=== PATIENT | female | born 1990 | race Caucasian/White ===

== ENCOUNTER 2016-12-27 06:03 | Emergency (ER) | payer MEDICAID, OTHER ==
[~2016-12-27] VITALS: Ht 160 cm; Wt 56.5 kg
[2016-12-27 06:10] VITALS: Ht 160 cm; Wt 56.5 kg
[2016-12-27] MEDS ORDERED: CLOT45CR19 VAG (07:24)
[2016-12-27] MEDS ORDERED: MCN2C15 TOP (07:25)
--- NOTE | 2016-12-27 07:31 | ERD ---
ER Documentation Chief Complaint Date/Time DATE: 12/27/16 TIME: 07:29 Chief Complaint vaginal pain/itching/whitish discharge x 10 days HPI 26-year-old female presents with vaginal itching and white discharge for the past 10 days. She states that she is trying to get at this time, and would prefer to treat conservatively. She denies any fevers, chills. About 2 weeks ago, she met with her ACCOUNTING MACHINE SERVICER who did a full panel of STDs, including blood work. She is currently taking vitamins. Patient reports that her workup was all negative. ROS All systems reviewed and are negative except as per history of present illness. Medications Home Meds Active Scripts Miconazole Nitrate* (Miconazole Nitrate*) 2% - 15 Gm Cr, 1 APPLIC TOP BID, #15 TUB Prov:JAZMIN BRIONES PA-C 12/27/16 Clotrimazole* (Clotrimazole-7*) Vaginal Cream..g., 1 APPLIC VAG HS for 7 Days, EA Prov:JAZMIN BRIONES PA-C 12/27/16 Allergies Allergies: Coded Allergies: tramadol (Verified Allergy, Unknown, sob, 12/27/16) PMhx/Soc History of Surgery: Yes (Bilateral Breast Augmentation) Anesthesia Reaction: No Hx Neurological Disorder: No Hx Respiratory Disorders: No Hx Cardiac Disorders: No Hx Psychiatric Problems: No Hx Miscellaneous Medical Probl: Yes (Miscarriage) Hx Alcohol Use: No Hx Substance Use: No Hx Tobacco Use: No Physical Exam Vitals Vital Signs Date Time Temp Pulse Resp B/P Pulse Ox O2 Delivery O2 Flow Rate FiO2 12/27/16 06:10 97.6 63 20 98/61 100 Physical Exam General: Well-developed, well-nourished. The patient appears in no acute distress. HEENT: Head is normocephalic, atraumatic. No scleral icterus. Neck: Supple. Nontender. Lungs: Clear to auscultation. Normal air movement. Heart: Regular rate and rhythm. S1 and S2 are normal. No murmurs, gallops, or rubs. Abdomen: Nondistended. : There is White yeastlike discharge, no CMT tenderness, no masses. No bleeding. Extremities: No clubbing or cyanosis. Moving extremities x 4. No weakness. Neurologic: Alert and oriented 3. No focal deficits. Normal speech and gait. Skin: Normal turgor. No rash or lesions. Procedures/MDM ER course: Urine was negative. MDM: 18-year-old female presents with yeast vaginitis 2 days. Differentials include UTI, PID, cervicitis, HSV, syphilis, and among others. Departure Diagnosis: Primary Impression: Vaginitis Condition: Good Patient Instructions: Vaginal Infection: Yeast (Candidiasis) Additional Instructions: Call your primary care doctor TOMORROW for an appointment during the next 1-2 days.See the doctor sooner or return here if your condition worsens before your appointment time. JAZMIN BRIONES PA-C Dec 27, 2016 07:31
== END 2016-12-27 07:57 | disposition home or self-care (01) ==
LOC: FTE 06:03
DX: N76.0 Acute vaginitis (principal)
CPT/HCPCS: 87591; Z7502; 99284

== ENCOUNTER 2017-01-07 11:22 | Emergency (ER) | payer OTHER ==
[~2017-01-07] VITALS: Wt 61.0 kg
[~2017-01-07 11:22] MED LIST: CLOT45CR19 VAG; MCN2C15 TOP
[2017-01-07] MEDS ORDERED: IBUP-1542 PO (11:49)
[2017-01-07] MEDS ORDERED: D-ME473S18 PO (11:49)
[2017-01-07] MEDS ORDERED: AZIT250T94 PO (11:49)
--- NOTE | 2017-01-07 11:56 | ERD ---
ER Documentation Chief Complaint Date/Time DATE: 01/07/17 TIME: 11:54 Chief Complaint FEVER/COUGH/SORE THROAT X 1 WEEK HPI This 18-year-old female presents with fever and cough and sore throat for last week. She has productive mucus. She denies wheezing, vomiting, abdominal pain , chest pain, neck stiffness, rashes. ROS All systems reviewed and are negative except as per history of present illness. Medications Home Meds Active Scripts Azithromycin* (Zithromax*) 250 Mg Tablet, 250 MG PO .ZPACK DIRECTED, #6 TAB TAKE 500 MG (2 TABS) THE FIRST DAY THEN 250 MG (1 TAB) DAYS 2-5 Prov:IVAN LOPEZ MD 01/07/17 Dextromethorphan Hb-Promethazine Hcl (Promethazine DM Syrup) 473 Ml Syrup, 5 ML PO Q6H Y for COUGH, #4 OZ Prov:IVAN LOPEZ MD 01/07/17 Ibuprofen* (Motrin*) 600 Mg Tab, 600 MG PO Q6, #15 TAB Prov:IVAN LOPEZ MD 01/07/17 Miconazole Nitrate* (Miconazole Nitrate*) 2% - 15 Gm Cr, 1 APPLIC TOP BID, #15 TUB Prov:JAZMIN BRIONES PA-C 12/27/16 Clotrimazole* (Clotrimazole-7*) Vaginal Cream..g., 1 APPLIC VAG HS for 7 Days, EA Prov:JAZMIN BRIONES PA-C 12/27/16 Allergies Allergies: Coded Allergies: tramadol (Verified Allergy, Unknown, sob, 12/27/16) PMhx/Soc History of Surgery: Yes (Bilateral Breast Augmentation) Anesthesia Reaction: No Hx Neurological Disorder: No Hx Respiratory Disorders: No Hx Cardiac Disorders: No Hx Psychiatric Problems: No Hx Miscellaneous Medical Probl: Yes (Miscarriage) Hx Alcohol Use: No Hx Substance Use: No Hx Tobacco Use: No Physical Exam Vitals Vital Signs Date Time Temp Pulse Resp B/P Pulse Ox O2 Delivery O2 Flow Rate FiO2 01/07/17 11:24 98.1 75 18 115/65 99 Physical Exam Const: [] Alert, [id number]. Head: Atraumatic Eyes: Normal Conjunctiva ENT: Normal External Ears, Nose and Mouth. TMs normal. Pupils nasal congestion with postnasal drip. Neck: Full range of motion..~ No meningismus. Resp: Clear to auscultation bilaterally. Coarse cough without rales, wheezing or retractions. Cardio: Regular rate and rhythm, no murmurs Abd: Soft, non tender, non distended. Normal bowel sounds Skin: No petechiae or rashes Back: No midline or flank tenderness Ext: No cyanosis, or edema Neur: Awake and alert Psych: Normal Mood and Affect Procedures/MDM Patient presents with URI symptoms for last week without evidence of respiratory distress or hypoxemia. Given the duration patient request she will be treated with Zithromax, promethazine and ibuprofen although this may be a viral illness. The patient was stable with no new complaints during the ER course. Clinically, there is no current evidence to suggest meningitis, sepsis, acute abdomen, pneumonia, acute coronary syndrome, pulmonary embolism, or any other emergent condition appearing to require further evaluation or hospitalization. The patient should certainly return for any new or worsening symptoms per the aftercare instructions. They should otherwise follow-up with her primary care doctor for reevaluation this week. Departure Diagnosis: Primary Impression: URI, acute Additional Impression: Fever Fever type: unspecified Qualified Code: R50.9 - Fever, unspecified fever cause Condition: Stable Patient Instructions: Acute Bronchitis, Fever Control (Adult) Additional Instructions: Recheck for new or worsening symptoms or primary care doctor. IVAN LOPEZ MD Jan 07, 2017 11:56
== END 2017-01-07 12:16 | disposition home or self-care (01) ==
LOC: FTE 11:22
DX: J06.9 Acute upper respiratory infection, unspecified (principal)
CPT/HCPCS: 99284

== ENCOUNTER 2017-03-22 20:26 | Emergency (ER) | payer OTHER ==
[~2017-03-22] VITALS: Ht 160 cm; Wt 59.0 kg
[~2017-03-22 20:26] MED LIST changes: +AZIT250T94 PO; +D-ME473S18 PO; +IBUP-1542 PO
[2017-03-22 20:46] VITALS: Ht 160 cm; Wt 59.0 kg
[2017-03-22] MEDS ORDERED: KETOROLAC 30 MG INJ IM STA (21:29)
[2017-03-22] MEDS ORDERED: DIAZEPAM 5 MG TAB PO STA (21:29)
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
[2017-03-22] MEDS ORDERED: CYCL-319 PO (21:52)
[2017-03-22] MEDS ORDERED: NAPR-260 PO (21:52)
[2017-03-22] MEDS ORDERED: IBUPROFEN 600 MG TAB PO STA (22:13)
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
== END 2017-03-22 23:24 | disposition home or self-care (01) ==
LOC: FTE 20:26
DX: S29.9XXA Unspecified injury of thorax, initial encounter (principal); V49.49XA Driver injured in collision with other motor vehicles in traffic accident, initial encounter
CPT/HCPCS: 72020; 96372; J1885; Z7502; Z7610

== ENCOUNTER 2018-02-16 13:38 | Emergency (ER) | END 2018-02-16 16:40 | disposition home or self-care (01) ==

== ENCOUNTER 2018-04-17 03:03 | Emergency (ER) | END 2018-04-17 04:38 | disposition home or self-care (01) ==

== ENCOUNTER 2018-05-08 07:16 | Emergency (ER) | END 2018-05-08 09:03 | disposition home or self-care (01) ==

== ENCOUNTER 2018-10-05 19:49 | Emergency (ER) | payer SELFPAY ==
[~2018-10-05] VITALS: Ht 162.6 cm; Wt 58.7 kg
[~2018-10-05 19:49] MED LIST changes: +ACET500C5 PO; +AZIT250T PO; -AZIT250T94 PO; +BACL10TA PO; +BENZ-6 PO; +CETI10CA PO; +CYCL10TA7 PO; +FLUT9.9S NASAL; +IBUP-1561 PO; +LORA-441 PO; +NAPR-985 PO
[2018-10-05 19:51] VITALS: BP 119/61; PULSE 69; RESP 20; Ht 162.6 cm; Wt 58.7 kg
[2018-10-06] MEDS ORDERED: PRED20TA PO (14:24)
[2018-10-06] MEDS ORDERED: LORA-186 PO (14:24)
== END 2018-10-05 20:50 | disposition left against medical advice (07) ==
LOC: FTE 19:49
DX: Z53.21 Procedure and treatment not carried out due to patient leaving prior to being seen by health care provider (principal)

== ENCOUNTER 2018-10-06 12:32 | Emergency (ER) | payer OTHER ==
[~2018-10-06] VITALS: Wt 52.0 kg
[2018-10-06 12:35] VITALS: BP 113/53; PULSE 68; RESP 18
[2018-10-06] MEDS ORDERED: LORA-186 PO (14:24)
[2018-10-06] MEDS ORDERED: PRED20TA PO (14:24)
--- NOTE | 2018-10-06 21:52 | ERD ---
ER Documentation Chief Complaint Chief Complaint LEFT EAR PAIN HPI 28-year-old female presents for left ear pain times 4 days. Patient states it's a buzzing sensation. She denies any recent sickness. She states that she has similar symptoms while she is on a flight. Denies any fevers or chills. ROS All systems reviewed and are negative except as per history of present illness. Medications Home Meds Active Scripts Prednisone (Prednisone) 20 Mg Tab, 20 MG PO DAILY for eustacian tube dysfunction for 3 Days, #2 TAB Prov:QUENTIN RUIZ 10/06/18 Loratadine* (Claritin*) 10 Mg Tablet, 10 MG PO DAILY for serous otitis for 30 Days, TAB Prov:QUENTIN RUIZ 10/06/18 Acetaminophen* (Tylophen*) 500 Mg Capsule, 1 CAP PO Q6H PRN for PAIN AND OR ELEVATED TEMP, #30 CAP Prov:MATT BROCKC 05/08/18 Ibuprofen* (Motrin*) 600 Mg Tab, 600 MG PO Q6, #30 TAB Prov:MATT BROCKC 05/08/18 Fluticasone Propionate (Flonase Allergy Relief) 9.9 Ml Roxie.susp, 2 SPRAY NASAL DAILY, #1 BOTTLE TO EACH NOSTRIL Prov:MATT BROCKC 05/08/18 Cetirizine Hcl* (Zyrtec*) 10 Mg Capsule, 10 MG PO DAILY, #14 TAB.CHEW Prov:MATT BROCKC 05/08/18 Cetirizine Hcl* (Zyrtec*) 10 Mg Capsule, 10 MG PO DAILY, #30 TAB.CHEW Prov:NOE JORDAN NP 04/17/18 Benzonatate* (Tessalon Perle*) 100 Mg Capsule, 100 MG PO Q8H PRN for COUGH, #20 CAP Prov:NOE JORDAN NP 04/17/18 Azithromycin* (Zithromax*) 250 Mg Tablet, 250 MG PO .ZPACK DIRECTED, #6 TAB TAKE 500 MG (2 TABS) THE FIRST DAY THEN 250 MG (1 TAB) DAYS 2-5 Prov:NOE JORDAN NP 04/17/18 Ibuprofen* (Motrin*) 400 Mg Tab, 400 MG PO Q8, #15 TAB Prov:JYOTHI KEARNS MD 02/16/18 Baclofen* (Baclofen*) 10 Mg Tablet, 10 MG PO TID for 5 Days, #15 TAB Prov:JYOTHI KEARNS MD 02/16/18 Lorazepam* (Ativan*) 0.5 Mg Tablet, 0.5 MG PO Q8H PRN for ANXIETY, #10 TAB Prov:JYOTHI KEARNS MD 02/16/18 Naproxen* (Naprosyn*) 500 Mg Tablet, 500 MG PO BID PRN for PAIN AND/OR INFLAMMATION, #30 TAB Prov:ODILON SHARMA PA-C 03/22/17 Cyclobenzaprine Hcl* (Cyclobenzaprine Hcl*) 10 Mg Tablet, 10 MG PO TID, #15 TAB Prov:ODILON SHARMA PA-C 03/22/17 Azithromycin* (Zithromax*) 250 Mg Tablet, 250 MG PO .ROSS DIRECTED, #6 TAB TAKE 500 MG (2 TABS) THE FIRST DAY THEN 250 MG (1 TAB) DAYS 2-5 Prov:IVAN LOPEZ MD 01/07/17 Dextromethorphan Hb-Promethazine Hcl (Promethazine DM Syrup) 473 Ml Syrup, 5 ML PO Q6H PRN for COUGH, #4 OZ Prov:IVAN LOPEZ MD 01/07/17 Ibuprofen* (Motrin*) 600 Mg Tab, 600 MG PO Q6, #15 TAB Prov:IVAN LOPEZ MD 01/07/17 Miconazole Nitrate* (Miconazole Nitrate*) 2% - 15 Gm Cr, 1 APPLIC TOP BID, #15 TUB Prov:JAZMIN BRIONES PA-C 12/27/16 Clotrimazole* (Clotrimazole-7*) Vaginal Cream..g., 1 APPLIC VAG HS for 7 Days, EA Prov:JAZMIN BRIONES PA-C 12/27/16 Allergies Allergies: Coded Allergies: tramadol (Verified Allergy, Unknown, sob, 04/17/18) PMhx/Soc History of Surgery: Yes (Bilateral Breast Augmentation 2009) Anesthesia Reaction: No Hx Neurological Disorder: No Hx Respiratory Disorders: No Hx Cardiac Disorders: No Hx Psychiatric Problems: No Hx Miscellaneous Medical Probl: Yes (Miscarriage) Hx Alcohol Use: No Hx Substance Use: No Hx Tobacco Use: No Smoking Status: Never smoker Physical Exam Vitals Vital Signs Date Temp Pulse Resp B/P (MAP) Pulse Ox O2 O2 Flow FiO2 Time Delivery Rate 10/06/18 98.1 68 18 113/53 99 12:35 (73) Physical Exam Const: No acute distress Head: Atraumatic Eyes: Normal Conjunctiva ENT: Normal External Ears, bilateral tympanic membrane intact without erythema or bulging noted, nose and Mouth examination normal, no tonsillar swelling or exudate noted Neck: Full range of motion. No meningismus. Resp: Clear to auscultation bilaterally, no wheezing, rales, rhonchi Cardio: Regular rate and rhythm, no murmurs Skin: No petechiae or rashes Ext: No cyanosis, or edema Neur: Awake and alert Psych: Normal Mood and Affect Procedures/MDM Medical Decision Making: Differential diagnosis includes but not limited to eustachian tube dysfunction, otitis media, otitis externa Patient appeared well on physical exam. Tympanic membranes intact bilaterally without erythema or bulging noted, there is low suspicion for otitis media or otitis externa Patient may have eustachian tube dysfunction. Patient given prescription for steroid and Claritin Advised that she may need to follow with a ENT specialist if symptoms do not improve. Patient advised to follow up with PCP in 1-2 days. Patient advised to return to ED for new or worsening symptoms. Patient stable on discharge from the ED. Disclaimer: Inadvertent spelling and grammatical errors are likely due to EHR/dictation software use and do not reflect on the overall quality of patient care. Also, please note that the electronic time recorded on this note does not necessarily reflect the actual time of the patient encounter. Departure Diagnosis: Primary Impression: Left ear pain Condition: Fair Patient Instructions: Common Middle Ear Problems Referrals: COMMUNITY CLINICS YOU HAVE RECEIVED A MEDICAL SCREENING EXAM AND THE RESULTS INDICATE THAT YOU DO NOT HAVE A CONDITION THAT REQUIRES URGENT TREATMENT IN THE EMERGENCY DEPARTMENT. FURTHER EVALUATION AND TREATMENT OF YOUR CONDITION CAN WAIT UNTIL YOU ARE SEEN IN YOUR DOCTORS OFFICE WITHIN THE NEXT 1-2 DAYS. IT IS YOUR RESPONSIBILITY TO MAKE AN APPOINTMENT FOR FOLOW-UP CARE. IF YOU HAVE A PRIMARY DOCTOR --you should call your primary doctor and schedule an appointment IF YOU DO NOT HAVE A PRIMARY DOCTOR YOU CAN CALL OUR PHYSICIAN REFERRAL HOTLINE AT IF YOU CAN NOT AFFORD TO SEE A PHYSICIAN YOU CAN CHOSE FROM THE FOLLOWING [facility] [address] [facility] [address] [employer] [facility] [address] [facility] [address] [facility] [address] [facility] [facility] [address] Additional Instructions: Call your primary care doctor TOMORROW for an appointment during the next 1-2 days.See the doctor sooner or return here if your condition worsens before your appointment time. QUENTIN RUIZ DO Oct 06, 2018 21:52
== END 2018-10-06 14:40 | disposition home or self-care (01) ==
LOC: FTE 12:32
DX: H92.02 Otalgia, left ear (principal)
CPT/HCPCS: 99283

== ENCOUNTER 2019-04-09 15:02 | Emergency (ER) | payer OTHER ==
[~2019-04-09] VITALS: Ht 167.6 cm; Wt 59.9 kg
[~2019-04-09 15:02] MED LIST changes: +CEPH-443 PO; +LORA-186 PO; +PRED20TA PO
[2019-04-09 15:23] VITALS: Ht 167.6 cm; Wt 59.9 kg
--- NOTE | 2019-04-09 18:24 | ERD ---
ER Documentation Chief Complaint Chief Complaint left breast pain, redness around nipple area, has implants x1 day HPI Patient is a 28-year-old female,, no past medical history, who presents the ER for concerns of left-sided breast pain for the last 3 days and redness surrounding her nipple for the last day. Patient has a history of breast implants placed 10 years ago in [place]. Patient states she feels as if her implant is moving. Patient denies any fever chest pain, shortness of breath, left upper extremity pain, nausea, vomiting, diaphoresis or loss of c onscious. Patient states she noticed some redness surrounding her nipples that she presents to the ER today. ROS All systems reviewed and are negative except as per history of present illness. Medications Home Meds Active Scripts Ibuprofen* (Motrin*) 600 Mg Tab, 600 MG PO Q6, #30 TAB Prov:SHAYAN MILLER PA-C 04/09/19 Cephalexin* (Keflex*) 500 Mg Capsule, 500 MG PO TID for 7 Days, CAP Prov:SHAYAN MILLER PA-C 04/09/19 Prednisone (Prednisone) 20 Mg Tab, 20 MG PO DAILY for eustacian tube dysfunction for 3 Days, #2 TAB Prov:QUENTIN RUIZ DO 10/06/18 Loratadine* (Claritin*) 10 Mg Tablet, 10 MG PO DAILY for serous otitis for 30 Days, TAB Prov:QUENTIN RUIZ DO 10/06/18 Acetaminophen* (Tylophen*) 500 Mg Capsule, 1 CAP PO Q6H PRN for PAIN AND OR ELEVATED TEMP, #30 CAP Prov:MATT BROCK PA-C 05/08/18 Ibuprofen* (Motrin*) 600 Mg Tab, 600 MG PO Q6, #30 TAB Prov:MATT BROCK PA-C 05/08/18 Fluticasone Propionate (Flonase Allergy Relief) 9.9 Ml [place].susp, 2 SPRAY NASAL DAILY, #1 BOTTLE TO EACH NOSTRIL Prov:MATT BROCK PA-C 05/08/18 Cetirizine Hcl* (Zyrtec*) 10 Mg Capsule, 10 MG PO DAILY, #14 TAB.CHEW Prov:MATT BROCK PA-C 05/08/18 Cetirizine Hcl* (Zyrtec*) 10 Mg Capsule, 10 MG PO DAILY, #30 TAB.CHEW Prov:NOE JORDAN [employer] RECORDS CLERK 04/17/18 Benzonatate* (Tessalon Perle*) 100 Mg Capsule, 100 MG PO Q8H PRN for COUGH, #20 CAP Prov:NOE JORDAN [employer] REC[employer] CLERK 04/17/18 Azithromycin* (Zithromax*) 250 Mg Tablet, 250 MG PO .ZPAARLEN DIRECTED, #6 TAB TAKE 500 MG (2 TABS) THE FIRST DAY THEN 250 MG (1 TAB) DAYS 2-5 Prov:NOE JORDAN [employer] RECOR[employer] CLERK 04/17/18 Ibuprofen* (Motrin*) 400 Mg Tab, 400 MG PO Q8, #15 TAB Prov:JYOTHI KEARNS MD 02/16/18 Baclofen* (Baclofen*) 10 Mg Tablet, 10 MG PO TID for 5 Days, #15 TAB Prov:JYOTHI KEARNS MD 02/16/18 Lorazepam* (Ativan*) 0.5 Mg Tablet, 0.5 MG PO Q8H PRN for ANXIETY, #10 TAB Prov:JYOTHI KEARNS MD 02/16/18 Naproxen* (Naprosyn*) 500 Mg Tablet, 500 MG PO BID PRN for PAIN AND/OR INFLAMMATION, #30 TAB Prov:ODILON SHARMA PA-C 03/22/17 Cyclobenzaprine Hcl* (Cyclobenzaprine Hcl*) 10 Mg Tablet, 10 MG PO TID, #15 TAB Prov:ODILON SHARMA PA-C 03/22/17 Azithromycin* (Zithromax*) 250 Mg Tablet, 250 MG PO .ZPAARLEN DIRECTED, #6 TAB TAKE 500 MG (2 TABS) THE FIRST DAY THEN 250 MG (1 TAB) DAYS 2-5 Prov:IVAN LOPEZ MD 01/07/17 Dextromethorphan Hb-Promethazine Hcl (Promethazine DM Syrup) 473 Ml Syrup, 5 ML PO Q6H PRN for COUGH, #4 OZ Prov:IVAN LOPEZ MD 01/07/17 Ibuprofen* (Motrin*) 600 Mg Tab, 600 MG PO Q6, #15 TAB Prov:IVAN LOPEZ MD 01/07/17 Miconazole Nitrate* (Miconazole Nitrate*) 2% - 15 Gm Cr, 1 APPLIC TOP BID, #15 TUB Prov:JAZMIN BRIONES PA-C 12/27/16 Clotrimazole* (Clotrimazole-7*) Vaginal Cream..g., 1 APPLIC VAG HS for 7 Days, EA Prov:JAZMIN BRIONES PA-C 12/27/16 Allergies Allergies: Coded Allergies: tramadol (Verified Allergy, Unknown, sob, 04/17/18) PMhx/Soc History of Surgery: Yes (Bilateral Breast Augmentation 2009) Anesthesia Reaction: No Hx Neurological Disorder: No Hx Respiratory Disorders: No Hx Cardiac Disorders: No Hx Psychiatric Problems: No Hx Miscellaneous Medical Probl: Yes (Miscarriage) Hx Alcohol Use: No Hx Substance Use: No Hx Tobacco Use: No FmHx Family History: No diabetes Physical Exam Vitals Vital Signs Date Temp Pulse Resp B/P (MAP) Pulse Ox O2 O2 Flow FiO2 Time Delivery Rate 04/09/19 99.2 80 18 112/56 100 15:23 (74) Physical Exam GENERAL: Well-developed, well-nourished female. Appears in no acute distress. Speaking in full sentences. HEAD: Normocephalic, atraumatic. EYES: Pupils are equally reactive bilaterally. EOMs grossly intact. No conjunctival erythema. ENT: Moist mucous membranes. No uvula deviation. No kissing tonsils. L BREAST: Generalized tenderness noted with minimal palpation of the left breast. Mild erythema and warmth noted surrounding the nipple in the 12 to 3 o'clock position. No nipple bleeding or discharge. NECK: Supple. No meningismus. Normal range of motion of the neck. LUNG: Clear to auscultation bilaterally. No rhonchi, wheezing, rales or coarse breath sounds. HEART: Regular rate and rhythm. No murmurs, rubs or gallops. EXTREMITIES: Equal pulses bilaterally. No peripheral clubbing, cyanosis or edema. No unilateral leg swelling. NEUROLOGIC: Alert and oriented. Moving all four extremities without any difficulty. Normal speech. Steady gait. SKIN: Normal color. Warm and dry. No rashes or lesions. Procedures/MDM ED COURSE: The patient was stable throughout ED course. I kept the patient and/or family informed of laboratory and diagnostic imaging results throughout the ED course. EKG: Read by Dr. Rivera, attending physician. EKG shows normal sinus rhythm at a rate of 73 bpm. No arrhythmias, acute ST elevations or T wave changes were noted. DIAGNOSTIC IMAGING: Read by radiologist. Patient: ALISSON SIBLEY : 1990 Age: 28 Sex: F MR #: [id number] DOS: 04/09/19 1556 Ordering MD: SHAYAN MILLER PA-C Location: E/R Room/Bed: PROCEDURE: Left breast ultrasound CLINICAL INDICATION: Left breast pain, breast implant TECHNIQUE: Ultrasound of the left breast was performed COMPARISON: None available FINDINGS: Left breast implant is seen and appears to be unremarkable on ultrasound. No cyst is seen. No solid mass is seen on ultrasound. IMPRESSION: Left breast implant. Otherwise unremarkable left breast ultrasound. Recommendation: Clinical evaluation and management is recommended. BIRADS category 1 - negative RPTAT: HJES .Mathew Peacock MD, MD Date Time Electronically viewed and signed by .Mathew Peacock MD, MD on 04/09/2019 17:50 .S/ CC: SHAYAN MILLER PA-C [phone] PROCEDURES: None. MEDICAL DECISION MAKING: Patient is a 28-year-old female, no past medical history, presents to the ER for concerns of left-sided breast pain for last 3 days and redness surrounding her nipple x1 day. Patient has a history of breast implants. Patient is concerned that 1 of the implants is moved or popped.. Vital signs were reviewed. Patient is afebrile. Patient was not hypoxic. Patient was hemodynamically stable. On exam, patient does have tenderness to the left breast as well as some surrounding redness to the nipple. Patient had no active bleeding or discharge. EKG was obtained and showed normal sinus rhythm. No ST elevations were noted. Low suspicion for ACS. Breast ultrasound was within normal limits. No leakage was noted however I did explain to the patient that the definitive test would be a mammogram versus MRI. Patient was advised to follow-up with primary care physician for referral for mammogram versus referral. Given that patient does have some breast redness, and patient will be treated with a course of advice for concerns of a localized cellulitis. Low suspicion for deep space infection. Patient was nontoxic, [id number] prior to discharge. PRESCRIPTION: Keflex DISCHARGE: At this time, patient is stable for discharge and outpatient management. I have instructed the patient to follow-up with his/her primary care physician in 1-2 days. I have discussed with the patient the possibility of needing to see a specialist for further workup and imaging studies if symptoms persist. I have instructed the patient to promptly return to the ER for any new or worsening symptoms including increased pain, fever, nausea, vomiting, weakness or LOC. The patient and/or family expressed understanding of and agreement with this plan. All questions were answered. Home care instructions were provided. Disclaimer: Inadvertent spelling and grammatical errors are likely due to EHR/dictation software use and do not reflect on the overall quality of patient care. Also, please note that the electronic time recorded on this note does not necessarily reflect the actual time of the patient encounter. Departure Diagnosis: Primary Impression: Breast pain Condition: Fair Patient Instructions: Breast Self-Exam (BSE) Referrals: [facility] (PCP) Additional Instructions: Follow-up with breast specialist for further management of your symptoms. You will need a mammogram versus MRI. Call your primary care doctor TOMORROW for an appointment during the next 1-2 days.See the doctor sooner or return here if your condition worsens before your appointment time. SHAYAN MILLER PA-C Apr 09, 2019 18:24
== END 2019-04-09 18:01 | disposition home or self-care (01) ==
LOC: E/R 15:02
DX: N64.4 Mastodynia (principal)
CPT/HCPCS: 76642; 93005; Z7502